=== PATIENT | male | born 2000 | race Caucasian/White ===

== ENCOUNTER 2022-07-12 12:59 | Emergency (ER) | payer BC ==
[~2022-07-12] VITALS: Ht 172.7 cm; Wt 65.8 kg
[2022-07-12] MEDS ORDERED: TRILEPTAL (13:04)
[2022-07-12] MEDS ORDERED: OXCA300T15 MT (13:16)
[2022-07-12] MEDS ORDERED: NICO-670 TP (13:17)
[2022-07-12] MEDS ORDERED: DEXT10TA19 MT (13:17)
--- NOTE | 2022-07-12 13:20 | NUR ---
padded bed rails for SZ precautions.
[2022-07-12] MEDS ORDERED: IV NORMAL SALINE 1000 ML BAG IV ONE (14:00)
--- NOTE | 2022-07-12 15:19 | NUR ---
Patient discharged to home in stable condition. Written and verbal after care instructions given. Patient verbalizes understanding of instructions. Stressed follow up or return to ER for worsening s/s.
--- NOTE | 2022-07-12 15:19 | NUR ---
IV removed. Catheter intact and site benign. Pressure and 4x4 gauze applied to site. No bleeding noted.
== END 2022-07-12 15:21 | disposition home or self-care (01) ==
LOC: ER 12:59
DX: G40.909 Epilepsy, unspecified, not intractable, without status epilepticus (principal); Z79.899 Other long term (current) drug therapy
CPT/HCPCS: 99284; 96360; J7040; A4663